=== PATIENT | male | born 1940 | race Caucasian/White ===

== ENCOUNTER 2019-02-16 22:32 | Observation (INO) ==
[2019-02-16 23:04] LABS: BASO# 0.03 X1000 (0.0-0.2); BASO% 0.2 % (0.0-0.8); EOS# 0.35 X1000 (0.0-0.7); EOS% 2.9 % (0.0-10.0); HEMATOCRIT 40.4 % (42.0-52.0); HEMOGLOBIN 13.2 g/dL (14.0-18.0); IMM GRAN# 0.03 X1000 (0.0-0.04); IMM GRAN% 0.2 % (0.0-0.5); LYMPH# 2.37 X1000 (1.2-3.4); LYMPH% 19.7 % (20.5-51.1); MCH 25.9 PG (27-31); MCHC 32.7 g/dL (33-37); MCV 79.4 FL (81-99); MONO# 1.34 X1000 (0.11-0.59); MONO% 11.1 % (1.7-9.3); MPV 9.9 FL (7.4-10.4); NEUT# 7.94 X1000 (1.4-6.5); NEUT% 65.9 % (42.2-75.2); PLT 280 X1000 (130-400); RBC 5.09 XMIL (4.7-6.1); RDW 14.9 % (11.5-14.5); WBC 12.06 X1000 (4.8-10.8)
[2019-02-16 23:19] LABS: BILIRUBIN URINE NEGATIVE (NEGATIVE); BLOOD URINE NEGATIVE (NEGATIVE); GLUCOSE URINE NEGATIVE (NEGATIVE); KETONE URINE TRACE mg/dL (NEGATIVE); LEUKOCYTES URINE NEGATIVE (NEGATIVE); NITRITE URINE NEGATIVE (NEGATIVE); PROTEIN URINE NEGATIVE (NEGATIVE); SP GRAVITY URINE 1.015; UROBILINOGEN URINE NORMAL
[2019-02-16 23:20] LABS: CLARITY CLEAR (CLEAR); COLOR YELLOW
--- NOTE | 2019-02-16 23:21 | PROVIDER DOCUMENTATION ---
This chart was entered by Madison Lozada Scribe, acting as scribe for Oj Weaver MD. HPI-Abdominal Pain/GI Problem - General Chief Complaint: Abdominal Pain Stated Complaint: STOMACH ISSUES / SWELLING Time Seen by Provider: 02/16/19 22:35 Source: patient Allergies/Adverse Reactions: Patient Allergies Allergy/AdvReac Type Severity Reaction Status Date / Time No Known Allergies Allergy Verified 02/16/19 22:40 Home Medications: Home Medication List Medication Instructions Recorded Confirmed Last Taken Type Aspirin 81 mg PO QHS 03/30/13 04/22/16 04/21/16 History Omeprazole [Prilosec] 40 mg PO DAILY #30 capsule. 02/04/15 04/22/16 04/21/16 Rx Lansoprazole [Prevacid] 30 mg PO DAILY #30 capsule. 04/22/16 Unknown Rx - History of Present Illness-ABD Nature of Presenting Problems: Pt is 78/m presenting to ED w/ ABD pain across middle of abd, pt sts that he is also feeling distended and tight. Sx started yesterday and have gotten worse today. PT could not eat much for dinner and has only had a piece of cheese toast and some jello. Pt denies being constipated and says that he has had 2 BM just today. Pt sts that he has hx of obstruction Abdominal Pain Onset Location: reports: periumbilical Quality of Pain: reports: burning, fullness, pressure Severity in ED: reports: mild Onset/Duration: reports: 2 days ago Timing: reports: intermittent, getting worse Activities at Onset: reports: eating Exposure to sick contacts?: No Modifying Factors: improves with: nothing Associated Symptoms: reports: heartburn, nausea. denies: chest pain, headaches, vomiting Last BM: this afternoon Dark Stools Present?: reports: none noticed Rectal Bleeding: reports: none Rectal Pain: reports: none Emesis Description: reports: none Bruising or Bleeding Gums?: No Similar Symptoms Previously?: No Review of Systems - Adult - REVIEW OF SYSTEMS - ADULT Constitutional: reports: no symptoms reported. denies: chills, fever Eyes: reports: no symptoms reported Ears, Nose, Mouth & Throat: reports: no symptoms reported Cardiovascular: reports: no symptoms reported. denies: chest pain Respiratory: reports: no symptoms reported. denies: shortness of breath Gastrointestinal: reports: abdominal pain, nausea. denies: constipation, diarrhea, vomiting Genitourinary: reports: no symptoms reported Musculoskeletal: reports: no symptoms reported Integumentary: reports: no symptoms reported Neurological: reports: no symptoms reported. denies: dizziness/vertigo, headache/migraines Psychiatric: reports: no symptoms reported Endocrine: reports: no symptoms reported Hematologic/Lymphatic: reports: no symptoms reported Allergic/Immunologic: reports: no symptoms reported All Other Systems: Reviewed and Negative Past History - Adult - PAST MEDICAL HISTORY-ADULT Review of Records: reports: Old Records Reviewed, Nursing Assessment Review, Medications Reviewed, Social history reviewed & non-contributory. Major Childhood Illnesses: reports: denies history Cardiovascular: denies: cardiac disease Respiratory: reports: denies history Gastrointestinal: reports: GERD Musculoskeletal: reports: denies history - PRIOR SURGERIES/PROCEDURES Surgical/Procedure History: reports: hernia repair - IMMUNIZATION STATUS Childhood Immunizations: See Nurse Assessment Flu Vaccine: See Nurse Assessment - SOCIAL HISTORY Smoking: quit greater than 1 year Substance Use: none/never, none presently/history of abuse Alcohol Use Frequency: never Living Situation: family Physical Exam-General - PHYSICAL EXAM-ADULT Initial Vital Signs Reviewed: Yes - CONSTITUTIONAL General Appearance: appears well, alert, no apparent distress - EYES Eyes: PERRL/EOMI, pink conjunctivae - HEAD, EARS, NOSE, MOUTH & THROAT HENMT: normocephalic/atraumatic, moist mucous membranes, normal ENT inspection, TMs normal - NECK Neck: non-tender, full range of motion, supple, normal inspection - RESPIRATORY Respiratory: lungs clear - CARDIOVASCULAR Cardiovascular: regular rate, rhythm - GASTROINTESTINAL (ABDOMEN) Abdominal Exam: normal bowel sounds, non tender, distended (ABD is distended, but not tender) - LYMPHATIC Lymphatic: no adenopathy - MUSCULOSKELETAL Back Exam: normal inspection Extremity: normal range of motion, non-tender, normal gait, normal inspection - SKIN Integumentary: normal color, warm/dry - NEUROLOGIC Neurologic: grossly normal - PSYCHIATRIC Psych/Mental Status: normal mood/affect, normal thought content, normal thought process, oriented x 3 Progress - PLAN OF CARE/RESULTS Progress/Plan/Lab Results: Vital Signs - 8 hr 02/16/19 22:34 Temperature 98.3 F Pulse Rate 72 Respiratory Rate 18 Blood Pressure 162/82 O2 Sat by Pulse Oximetry 98 Orders Category Date Time Status Saline Loc DIRECTED Care 02/16/19 22:37 Active NPO Diet 02/16/19 22:37 Active CBC WITH ELECTRONIC DIFF [HEME] Stat Lab 02/16/19 22:51 Results COMPREHENSIVE METABOLIC PANEL [CHEM] Stat Lab 02/16/19 22:57 Received LIPASE [CHEM] Stat Lab 02/16/19 22:[address] W/POSS RFLX CULT [URINALYSIS] Stat Lab 02/16/19 22:49 Received Result Diagrams: 02/16/19 22:51 02/16/19 22:51 - XRAY 1 XRAY Study: Abdomen, Pelvis XRAY Interpretation: distended loops of bowel, no free air - CONSULTS/PCP/HOSPITALIST Notification #1 *Consult/PCP/Hospitalist*: 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 Pascal, hospitalist Time Discussed: 02:15 Consult Disposition: Admit Departure - Departure Date of Disposition Decision: 02/17/19 Time of Disposition Decision: 02:10 DIAGNOSIS: Small bowel obstruction Disposition: ADMITTED INPATIENT 09 Certified Medical Emergency: Emergent Condition: Stable Referrals and Follow-Ups: Toñito Mei MD [Primary Care Provider] - - Critical Care Note This patient required my direct & personal management of CC.: No Attestation - Physician/ CORBY Attestation Patient care was provided by Advanced Practice Provider:: No The physician spent face to face time with patient:: Yes Advanced Practice Provider documentation review:: Supervising physician onsite and consulted in the evaluation and care of this patient. The physician did have a face to face encounter with the patient. This chart was documented by the indicated scribe, (Madison Lozada Scribe) and accurately reflects the services I performed and decisions made by me, Oj Weaver MD, as attested by the provider's signature.
[2019-02-16 23:26] LABS: ALBUMIN 4.3 g/dL (3.5-5.0); CREATININE 1.3 mg/dL (0.7-1.2); POTASSIUM 3.7 mmol/L (3.5-5.1); TOTAL BILIRUBIN 0.6 mg/dL (0.20-1.00); TOTAL PROTEIN 7.5 g/dL (6.3-8.3)
[2019-02-16 23:31] LABS: URINE BACTERIA 3+ /HFP; URINE CAST NONE SEEN /LPF; URINE CRYSTAL NONE SEEN /HPF; URINE EPITHELIAL CELLS <10 /HPF (<10); URINE RBC <10 /HPF (<10); URINE SOURCE CLEAN CATCH; URINE WBC <10 /HPF (<10); URINE YEAST NONE SEEN /HPF
[2019-02-17] MEDS ORDERED: MORPHINE IV PRN ×2 (02:10→08:48)
[2019-02-17] MEDS ORDERED: ZOFRAN IV PRN (02:10)
[2019-02-17] MEDS ORDERED: NS 1,000 ML IV ONE (02:10)
--- NOTE | 2019-02-17 05:47 | Diag Imaging Result Doc PS360 ---
EXAM: CT ABD/PELVIS W/IV CONT ONLY HISTORY: abdominal pain TECHNIQUE: CT abdomen and pelvis with intravenous contrast COMPARISON: 02/01/2015 FINDINGS: There is a 10 mm lobulated left lower lobe lung nodule. An 8 mm lung nodules found in the right lung base. These were present on the prior exam are unchanged. There are multiple scattered cysts. There is also fatty infiltration of the liver. No calcified gallstones or adjacent inflammation. Normal spleen, pancreas, adrenal glands, and kidneys. No hydronephrosis. No aortic aneurysm. Mild to moderate atherosclerosis. There are multiple dilated small bowel loops in the mid and lower abdomen. These measure up to 4.1 cm in diameter in the upper pelvis. The distal small bowel loops are normal. Transition point appears to be in the right lower quadrant. No enlarged lymph nodes. Small amount of free fluid in the pelvis and paracolic gutters. The urinary bladder is distended and normal. Normal prostate. There is at least a small right-sided hydrocele. IMPRESSION: 1.Distal small bowel obstruction 2.Stable pulmonary nodules 3.Hepatic cysts with fatty infiltration 4.Right hydrocele 5.A preliminary report was given at 1:54 AM and discussed with Dr. Weaver at 2:01 AM This exam was performed using automated exposure control, adjustment of mA or kV according to patient size, and/or use of iterative reconstruction technique. Electronically signed by Villa Del Toro 02/17/2019 5:45 AM
--- NOTE | 2019-02-17 07:08 | Diag Imaging Result Doc PS360 ---
EXAM: FLAT/UPRIGHT ABD/1 VIEW CHEST HISTORY: abdominal pain and distension TECHNIQUE: Flat and upright with chest, four views COMPARISON: 05/08/2018 FINDINGS: The lungs are well expanded. No cardiomegaly. No pneumonia. No free air beneath the diaphragm. No organomegaly. There are air distended loops of small bowel. No foreign body. No abnormal calcifications. IMPRESSION: Small bowel obstruction. Electronically signed by Villa Del Toro 02/17/2019 7:05 AM
[2019-02-17 09:49] LABS: BASO# 0.03 X1000 (0.0-0.2); BASO% 0.5 % (0.0-0.8); EOS# 0.22 X1000 (0.0-0.7); EOS% 3.3 % (0.0-10.0); HEMATOCRIT 34.7 % (42.0-52.0); IMM GRAN# 0.02 X1000 (0.0-0.04); IMM GRAN% 0.3 % (0.0-0.5); LYMPH# 1.63 X1000 (1.2-3.4); LYMPH% 24.5 % (20.5-51.1); MCH 25.3 PG (27-31); MCHC 31.7 g/dL (33-37); MONO# 0.96 X1000 (0.11-0.59); MONO% 14.5 % (1.7-9.3); MPV 9.7 FL (7.4-10.4); NEUT# 3.78 X1000 (1.4-6.5); NEUT% 56.9 % (42.2-75.2); PLT 234 X1000 (130-400); RBC 4.34 XMIL (4.7-6.1); RDW 14.7 % (11.5-14.5); WBC 6.64 X1000 (4.8-10.8)
[2019-02-17 10:02] LABS: CALCIUM 8.3 mg/dL (8.8-10.2); CREATININE 1.2 mg/dL (0.7-1.2); POTASSIUM 4.1 mmol/L (3.5-5.1)
[2019-02-17] MEDS ORDERED: APRESOLINE IV PRN (11:19)
--- NOTE | 2019-02-17 11:26 | HISTORY AND PHYSICAL ---
PRIMARY CARE PROVIDER: Dr. Mei. CHIEF COMPLAINT: Abdominal swelling. HISTORY OF PRESENT ILLNESS: Mr. Brody is a 78-year-old male who carries a past medical history of previous small-bowel obstructions requiring hospitalization, GERD, hypertension, who reported 2 days ago, he was having some nausea and followed a clear liquid diet secondary to the nausea, then the next day developed some cramping-type sensation. He ate breakfast and dinner yesterday, his last meal was at 18:00 and was cheese, toast and Jell-O. After that, he started experiencing some bloating and some pain across his central abdomen. He reports his last BM was regular yesterday evening. He reports passing gas all this morning. He feels that his abdominal bloating has decreased. He reported maybe some chills on Monday, but no reported fever. He has had some recent allergies that have caused him to have a cough. He reports no diarrhea. No chest pain. No palpitations. No syncopal episodes. Does not report any dysuria. No constipation or bright red or dark tarry stools. Workup in the ED with an abdominal x-ray followed up with an abdominal CT showed distal small-bowel obstruction, stable pulmonary nodules, hepatic cysts with fatty infiltration of the liver, and a right hydrocele. He was admitted to the hospital, made n.p.o., started on IV fluids and pain management with a surgical consult. PAST MEDICAL HISTORY: 1. GERD. 2. Hypertension. 3. Previous small bowel obstructions requiring hospitalizations, but improved with conservative management. PAST SURGICAL HISTORY: Right inguinal hernia repair. FAMILY HISTORY: Colon cancer in mother, lung cancer in father, as well as CVA. Sister with diabetes mellitus. Hypertension runs in the family. SOCIAL HISTORY: He is . He has 3 children. He has 11 pack-year history of smoking but has not smoked in over 35 years. No alcohol, tobacco, or illicit drug use. 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 REVIEW OF SYSTEMS: Twelve-point review of systems completely negative except for those mentioned in the HPI. HOME MEDICATIONS: 1. Aspirin 81 mg p.o. at bedtime. 2. Coreg 12.5 mg p.o. b.i.d. PHYSICAL EXAMINATION: VITAL SIGNS: Temperature is 98 degrees, heart rate 68, respirations 18, blood pressure 118/73, O2 is 99% on room air. GENERAL: Mr. Brody is a pleasant 78-year-old male who is lying on the bed in no acute distress. HEENT: Atraumatic, normocephalic. PERRL. NECK: Supple. Trachea midline. CARDIOVASCULAR: S1, S2 appreciated. No murmurs, gallops, rubs noted. No JVD. No lower extremity edema. ABDOMEN: Soft, mildly tender in all quadrants. Quiet bowel sounds. EXTREMITIES: No signs of clubbing or cyanosis. NEUROLOGIC: Cranial nerves II through XII grossly intact. No focal deficits noted. DIAGNOSTIC DATA: Abdominal x-ray with small bowel obstruction. Abdomen and pelvis CT with stable distal bowel obstruction. Stable pulmonary nodules, hepatic cyst with fatty infiltration. Right hydrocele. LABORATORY DATA: White count 12, decreased to 6, hemoglobin and hematocrit of 13 and 40 this a.m. at 11:34, platelet count 280,000 this a.m. at 2:34. Sodium 141, potassium 4.1, BUN 13, creatinine 1.2, blood glucose 99. Urinalysis shows 3+ bacteria, but no nitrites. ASSESSMENT AND PLAN: 1. Small bowel obstruction with a history of small bowel obstructions requiring hospitalizations in the past. He improved with conservative management at that time. We will continue him with n.p.o. status. Continue IV fluids. Consult General Surgery. Serial KUBs. Allow for bowel rest. Continue with antiemetics and pain regimen. 2. Acute kidney injury, resolved. 3. Initial acute kidney injury, now resolved after IV hydration. 4. Hypertension. Will continue Coreg when appropriate. 5. Gastroesophageal reflux disease. Continue proton pump inhibitor. 6. Further recommendation to follow physician evaluation, laboratory and diagnostic data. Dictated by ADRIAN Infante for Casey Smyth MD Addendum: Patient seen and examined by myself. Agree with ADRIAN note. It reflects my assessment and plan. Patient is being admitted to hospital for SBO. Will place him on NPO, IV fluids and pain medications. General Surgery has been consulted. Will follow recommendations. Will order abdominal x ray tomorrow. cc: MD Toñito Arenas MD [facility]
[2019-02-17] MEDS ORDERED: NS 1,000 ML IV SCH (12:00)
[2019-02-17] MEDS ORDERED: TYLENOL PO PRN (12:39)
[2019-02-17] MEDS: D5 1/2 NS + KCL 20 MEQ 1,000 ML IV SCH (13:28)
[2019-02-17] MEDS: ASPIRIN PO SCH (21:30)
[2019-02-17] MEDS: COREG PO SCH (21:30)
[2019-02-18] MEDS: D5 1/2 NS + KCL 20 MEQ 1,000 ML IV SCH ×2 (03:37→17:59)
[2019-02-18 06:33] LABS: BASO# 0.03 X1000 (0.0-0.2); BASO% 0.6 % (0.0-0.8); EOS# 0.26 X1000 (0.0-0.7); EOS% 5.1 % (0.0-10.0); HEMATOCRIT 33.9 % (42.0-52.0); HEMOGLOBIN 10.8 g/dL (14.0-18.0); IMM GRAN# 0.02 X1000 (0.0-0.04); IMM GRAN% 0.4 % (0.0-0.5); LYMPH# 1.58 X1000 (1.2-3.4); MCH 25.7 PG (27-31); MCHC 31.9 g/dL (33-37); MCV 80.5 FL (81-99); MONO# 0.65 X1000 (0.11-0.59); MONO% 12.7 % (1.7-9.3); MPV 10.4 FL (7.4-10.4); NEUT# 2.56 X1000 (1.4-6.5); NEUT% 50.2 % (42.2-75.2); PLT 228 X1000 (130-400); RBC 4.21 XMIL (4.7-6.1); RDW 14.8 % (11.5-14.5)
[2019-02-18 06:43] LABS: AGAP 10; BUN 10 mg/dL (8-22); CALCIUM 8.1 mg/dL (8.8-10.2); CHLORIDE 108 mmol/L (98-107); COSMO 281; ESTIMATED GFR > 60; GLUCOSE 112 mg/dL (70-104); POTASSIUM 3.9 mmol/L (3.5-5.1); SODIUM 141 mmol/L (136-145); TCO2 23 mmol/L (25-35)
--- NOTE | 2019-02-18 08:26 | Diag Imaging Result Doc PS360 ---
EXAM: FLAT/UPRIGHT ABD/1 VIEW CHEST HISTORY: ileus TECHNIQUE: Two view abdomen. Single view chest. COMPARISON: 02/16/2019 FINDINGS: Supine and erect views of the abdomen reveal decreased number and caliber of dilated small bowel loops compared to previous examination. There is a single dilated loop of small bowel central abdomen. There is gas throughout nondilated colon. No organomegaly or mass effect. Single view of the chest reveals no infiltrate, effusion, or pneumothorax. There is no free air beneath the hemidiaphragm. IMPRESSION: Decreased number and caliber of dilated small bowel loops compared with prior. There is one persistently dilated small bowel loop within the central abdomen. Findings suggest some improvement in probable mechanical small bowel obstruction. Electronically signed by Any Cunningham 02/18/2019 8:23 AM
[2019-02-18] MEDS: COREG PO SCH ×2 (08:28→20:44)
[2019-02-18] MEDS ORDERED: D5 1/2 NS + KCL 20 MEQ 1,000 ML IV SCH (16:55)
--- NOTE | 2019-02-18 19:20 | PROGRESS NOTE ---
DATE: 02/18/2019 SUBJECTIVE: Patient notes he is still having a cough, but actually feels a little bit better. He is having less abdominal pain. Denies any fevers or chills. PHYSICAL EXAMINATION: Vital Signs: Temperature 97.5 degrees, pulse 58, respiratory rate 18, BP 113/57. General: Patient is awake, alert. He is in no distress. He does not appear to be coughing or having any respiratory difficulty currently. HEENT: Normocephalic. Neck: Supple. Cardiovascular: Regular rate. Chest: Clear and nonlabored. Abdomen: Soft, nondistended. Positive bowel sounds. Extremities: Moves all extremities. Neurologic: No changes. ASSESSMENT: 1. Small bowel obstruction. Appears to be improving. Will check a KUB. Advance his diet. 2. Acute kidney injury. 3. Hypertension. cc: Lebron Anne MD
[2019-02-18] MEDS: ASPIRIN PO SCH (20:44)
[2019-02-19 07:18] VITALS: BP 133/90
--- NOTE | 2019-02-19 16:52 | DISCHARGE SUMMARY ---
ADMISSION DATE: 02/17/2019 DISCHARGE DATE: 02/19/2019 CONSULTATIONS: Dr. Lassiter with General Surgery. PERTINENT PROCEDURES: 1. Abdomen and pelvis CT. Distal small-bowel obstruction. Small pulmonary nodules. Hepatic cyst with fatty infiltration. Right hydrocele. 2. Abdominal x-ray. Decreased number of caliber of dilated small bowel loops compared with prior, persistently dilated small bowel loop within the central abdomen. There is improvement in probable mechanical small-bowel obstruction. DISCHARGE DIAGNOSES: 1. Small bowel obstruction. Continues to improve. Dr. Lassiter has advanced his diet to regular. He has tolerated well, passing gas, having bowel movement. He will be discharged home to follow up with his primary care provider. 2. Acute kidney injury, resolved. 3. Hypertension. Continue home medications. HOSPITAL COURSE: Briefly, Mr. Brody is a 78-year-old male who carries a past medical history of previous small bowel obstruction requiring hospitalization, GERD, hypertension, who reported 2 days prior to admission, he was having some nausea, and he followed as a clear liquid diet secondary to the nausea. The next day, he developed some gripping type sensation in his abdomen. He did eat a meal that consisted of cheese, toast, and Jell-O, and after that he started experiencing some bloating as well as continued pain across his central abdomen. He had a regular BM the day before, and he reported he was able to pass gas. He went to [facility] ED for followup. Abdominal x-ray as well as abdominal CT showed distal small-bowel obstruction, stable pulmonary nodules, hepatic cyst with fatty infiltration of the liver, and a right hydrocele. He is admitted to the hospital, initially made n.p.o., started on IV fluids and pain management. Dr. Lassiter was consulted. He slowly advanced his diet. His x-rays have improved. He is now tolerating a regular diet, continues to pass gas and have bowel movements. He will be discharged home to follow up with Dr. Mei. VITAL SIGNS: Temperature is 98.9 degrees, heart rate 65, respirations 18, blood pressure 133/90. O2 is 97% on room air. DISCHARGE DIET: Regular. DISCHARGE MEDICATIONS: 1. Aspirin 81 mg p.o. at bedtime. 2. Coreg 12.5 mg p.o. b.i.d. FOLLOWUP: Mr. Brody is being discharged back home with his . He is to take all medications as prescribed. He is to continue to follow a regular soft diet and advance slowly as tolerated. He is to follow up with Dr. Mei. He can return to the ED or call 911 for any worsening of symptoms. Dictated by ADRIAN Infante for Lebron Anne MD cc: MD Lebron Solomon MD
--- NOTE | 2019-02-21 10:40 | DISCHARGE SUMMARY ---
ADMISSION DATE: 02/17/2019 DISCHARGE DATE: 02/19/2019 ADDENDUM: Patient seen and examined by myself. Full note dictated and discussed with nurse practitioner. Patient presented to the hospital with abdominal pain and swelling, was subsequent diagnosed with small bowel obstruction, was kept NPO. Thankfully, he had an uneventful hospital course. Subsequent KUBs continued to improve and he was advanced on his diet. On discharge, he tolerated a full diet and, therefore, will be discharged home. Please see full note. cc: Lebron Anne MD
== END 2019-02-19 09:00 | disposition home or self-care (01) ==
LOC: P.ED 22:32 → P.MEDSURG 22:32 → SUATTDRO 02-17 03:45
PROVIDERS: ATTEND Family Medicine